=== PATIENT | male | born 1975 | race African-American/Black ===

== ENCOUNTER 2017-03-29 10:17 | Emergency (ER) | payer MEDICAID, OTHER ==
[~2017-03-29] VITALS: Ht 198.1 cm; Wt 130.0 kg
[~2017-03-29 10:17] MED LIST: ALBU8.5H3; HYDR-906 PO; NAPR-260 PO
[2017-03-29 10:22] VITALS: Ht 198.1 cm; Wt 130.0 kg
[2017-03-29] MEDS ORDERED: ONDANSETRON (ODT) 4 MG TAB ODT STA (11:23)
[2017-03-29] MEDS ORDERED: HYDROCODONE/APAP (10/325) TAB PO ONE (11:30)
[2017-03-29 11:36] LABS: URINE BLOOD (Dip) POC Negative (NEGATIVE)
--- NOTE | 2017-03-29 12:24 | RADRPT ---
PROCEDURE: Scrotal ultrasound CLINICAL INDICATION: Right testicular pain. TECHNIQUE: Scrotal ultrasound was performed with sagittal and transverse views. Renteria scale and co heather imaging was performed. Images were reviewed on high resolution PACS monitors. COMPARISON: None available FINDINGS: The right testicle measures 3.8 x 1.7 x 2.8 cm. The left testicle measures 3.2 x 1.7 x 2.5 cm. There is normal size and echogenicity and morphology bilaterally. There is normal blood flow seen bilaterally. The right epididymis is slightly enlarged and mildly hyperemic. There is a 0.5 cm right epididymal cyst. No hydrocele is identified. There is no evidence for varicocele. The soft tissues are unremarkable. No mass or cyst or other abnormality is seen. IMPRESSION: 1. Mildly enlarged, slightly hyperemic right epididymis suggesting right-sided epididymitis. 2. 0.5 cm right epididymal cyst. 3. Unremarkable testis bilaterally. RPTAT: [facility] Physician Maxim Date Time Electronically viewed and signed by Physician Maxim on 03/29/2017 12:24 TOÑITO/
[2017-03-29] MEDS ORDERED: CIPR500T4 PO (12:35)
[2017-03-29] MEDS ORDERED: HYDR-902 PO (12:35)
[2017-03-29] MEDS ORDERED: IBUP-1542 PO (12:35)
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
== END 2017-03-29 12:53 | disposition home or self-care (01) ==
LOC: FTE 10:17
DX: N45.1 Epididymitis (principal); I10 Essential (primary) hypertension; J45.909 Unspecified asthma, uncomplicated; Z87.891 Personal history of nicotine dependence
CPT/HCPCS: 76870; 81003; Z7502; Z7610